=== PATIENT | male | born 1980 | race Caucasian/White ===

== ENCOUNTER 2020-12-04 01:38 | Emergency (ER) | payer MEDICAID ==
[~2020-12-04] VITALS: Ht 165.1 cm; Wt 61.4 kg
[2020-12-04] MEDS ORDERED: normal saline 1000ML IV soln IVB ONE (02:10)
--- NOTE | 2020-12-04 02:33 | NUR ---
pt to ct of abdomen. labs drawn, urine cllected, piv in place. 1 liter ns infusing.
[2020-12-04 02:35] LABS: BASOPHILS # (AUTO) 0.1 X10'3 (0-0.2); BASOPHILS % (AUTO) 1.3 % (0-1); EOSINOPHILS # (AUTO) 0.4 X10'3 (0-0.9); EOSINOPHILS % (AUTO) 3.3 % (0-6); HEMATOCRIT 45.1 % (42.0-52.0); HEMOGLOBIN 15.4 g/dl (14.0-17.9); LYMPHOCYTES # (AUTO) 2.6 X10'3 (1.1-4.8); LYMPHOCYTES % (AUTO) 23.7 % (21-51); MEAN CORPUSCULAR HEMOGLOBIN 31.2 PG (27.0-31.0); MEAN CORPUSCULAR HGB CONC 34.1 g/dL (33.0-36.5); MEAN CORPUSCULAR VOLUME 91.5 FL (78-98); MEAN PLATELET VOLUME 10.2 FL (7.4-10.4); MONOCYTES # (AUTO) 0.8 X10'3 (0-0.9); MONOCYTES % (AUTO) 7.3 % (2-12); NEUTROPHILS # (AUTO) 7.1 X10'3 (1.8-7.7); NEUTROPHILS % (AUTO) 64.4 % (42-75); PLATELET COUNT 196 X10'3 (140-440); RED BLOOD COUNT 4.93 X10'6 (4.70-6.10); RED CELL DISTRIBUTION WIDTH 12.6 % (11.5-14.5); WHITE BLOOD COUNT 11.1 X10'3 (4.5-11.0)
[2020-12-04] MEDS ORDERED: NO HOME MEDS (02:38)
[2020-12-04 02:39] LABS: CLARITY,URINE CLEAR (Clear); COLOR,URINE YELLOW (Yellow); GLUCOSE, URINE NEGATIVE (Neg); KETONES,URINE NEGATIVE (Neg); LEUKOCYTE ESTERASE ,URINE NEGATIVE (Neg); NITRITES, URINE NEGATIVE (Neg); OCCULT BLOOD,URINE NEGATIVE (Neg); PROTEIN,URINE NEGATIVE (Neg); UA COLLECTION TYPE CLN CATCH MIDSTREAM; UROBILINOGEN,URINE 0.2 E.U/dL (0.2-1.0)
[2020-12-04 02:48] LABS: ALANINE AMINOTRANSFERASE 39 U/L (12-78); ALBUMIN 4.1 G/DL (3.4-5.0); ALBUMIN/GLOBULIN RATIO 1.4 (1.1-1.5); ALKALINE PHOSPHATASE 49 IU/L (46-116); ANION GAP 6 (8-16); ASPARTATE AMINO TRANSFERASE 21 U/L (10-37); BILIRUBIN,TOTAL 0.4 MG/DL (0.1-1.0); BLOOD UREA NITROGEN 17 MG/DL (7-18); CALCIUM 8.6 MG/DL (8.5-10.1); CHLORIDE 103 MMOL/L (99-107); CREATININE 1.13 MG/DL (0.60-1.10); GLUCOSE 148 MG/DL (70-104); SODIUM 139 MMOL/L (135-145); TOTAL CARBON DIOXIDE 29.6 MMOL/L (24-32); TOTAL PROTEIN 7.1 G/DL (6.4-8.2); eGFR 72 ML/MIN
[2020-12-04] MEDS ORDERED: potassium Cl 20 mEq SR tablet PO ONE (03:10)
[2020-12-04] MEDS ORDERED: POTA10TA36 PO (03:11)
[2020-12-04 03:15] LABS: LIPASE 2531 U/L (73-393)
--- NOTE | 2020-12-04 03:41 | NUR ---
PT PREPARED FOR DISCHARGE AND NOTED THAT HE HAS ELEVATED LIPASE AND MD DECIDED THAT HE WANTS PT TO HAVE US OF ABDOMEN PRIOR TO DC. PT'S IV REMOVED AND WAS CALLED TO TUB ATTENDANT. PT IS AGREEABLE TO STAYING AND HAVING THE US.
--- NOTE | 2020-12-04 04:22 | NUR ---
US OF ABDOMEN IN PROGRESS NOW.
[2020-12-04 04:41] VITALS: BP 128/70
--- NOTE | 2020-12-04 04:42 | NUR ---
DR. BERNAL TALKING WITH PT ABOUT DC INSTRUCTIONS AND US RESULTS (-). PT ENCOURAGED TO FU WITH PCP AND HAVE MRI AND POSSIBLE GI CONSULT. PTS PICKING HIM UP
== END 2020-12-04 04:43 | disposition home or self-care (01) ==
LOC: ER 01:39
DX: R10.31 Right lower quadrant pain (principal); R55 Syncope and collapse; E87.6 Hypokalemia; Z98.890 Other specified postprocedural states; Z88.0 Allergy status to penicillin; Z79.899 Other long term (current) drug therapy
CPT/HCPCS: 36415; 74176; 76700; 80053; 81003; 83690; 85025; 93005; 96360; 99285; J7030